=== PATIENT | male | born 1950 | race Caucasian/White ===

== ENCOUNTER 2022-02-02 11:21 | Inpatient (IN) ==
[2022-02-02] MEDS ORDERED: SODIUM CHLORIDE 0.9% 1000ML 1,000 ML IV ONE (12:20)
--- NOTE | 2022-02-02 12:29 | Emergency Department Note ---
Impression & Plan Small bowel perforation, Abdominal pain, Leukopenia ED Provider Note NAME: KIKI HENAO AGE: 71 SEX: M : 1950 ARRIVES VIA: Walk-In INFORMANT: Patient ED PROVIDER(S): Angelo Khanna DO CHIEF COMPLAINT: abdominal pain HPI: Patient is a 71-year-old male who presents to the ER for abdominal pain. Symptoms have been going on for the past 4 days. He describes the pain as 6-7 out of 10. Admits to nausea but no vomiting. He has been having profuse di arrhea for the past 4 days. Denies any dysuria, urgency, or frequency. No other exacerbating or remitting factors. He notes that his abdomen does feel slightly distended. He does drink alcohol fairly regularly but has not drank in the past 5 days. ROS: See above HPI for pertinent positives & negatives. A total of 10 systems reviewed and were otherwise negative. PAST MEDICAL HISTORY:See Below PAST SURGICAL HISTORY:See Below FAMILY HISTORY:See Below SOCIAL HISTORY:See Below HOME MEDICATIONS:See Below ALLERGIES:See Below VITALS:See Below PHYSICAL EXAMINATION: GENERAL: Sitting up in bed, alert, well appearing, well nourished, no distress, non-toxic EYE EXAM: normal conjunctiva. OROPHARYNX: no exudate, no erythema, lips, buccal mucosa, and tongue normal and mucous membranes are moist NECK: supple, no nuchal rigidity, no adenopathy, non-tender LUNGS: Clear to auscultation. Normal chest wall mechanics HEART: no murmurs, S1 normal and S2 normal ABDOMEN: abdomen soft, tender periumbilically, normo-active bowel sounds, no masses, no rebound or guarding. UPPER EXTREMITIES: upper extremities are grossly normal. LOWER EXTREMITIES: No pitting edema. NEURO EXAM: Normal sensorium, cranial nerves II-XII grossly intact, normal speech, no gross weakness of arms, no gross weakness of legs. MEDICAL DECISION MAKING: Patient is a 71-year-old male who presents ER for abdominal pain. IV was established blood work was obtained. Labs show leukopenia at 3.8. No significant anemia. Platelets were slightly low at 126. INR 3.2. BMP along with LFTs bilirubin was unremarkable. UA was contaminated. CT abdomen pelvis shows small bowel perforation. He was given IV Zosyn. He was given morphine and Zofran. Discussed with general surgery karson Rowell and patient was admitted to their service for further work-up. Triage Nursing notes reviewed. Limited review of prior medical records performed Vital Signs: reviewed and remarkable for no significant abnormalities Differential diagnosis: Differential diagnoses includes but is not limited to gastritis, peptic ulcer disease, GERD, gallbladder disease, pancreatitis, small bowel obstruction, acute coronary syndrome, pericarditis, ischemic bowel, irritable bowel disease, irritable bowel syndrome, appendicitis, diverticulitis, malignancy, hernia, urinary tract infection, torsion, perforation, trauma, infectious. ER treatment provided: See below Diagnostics interpreted by me: ECG: none Cardiac Monitoring: An order was placed for continuous cardiac monitoring. The monitor shows a rate of 70 with sinus rhythm. Laboratory studies: As stated above and show below. Imaging studies: CT abdomen pelvis as described above Consultation(s): Discussed with general surgery as described above Procedures: none Critical Care: None Past Med/Surg History Social History Smoking Status: Never smoker Feels Safe at Home: Yes Allergies Allergies Allergy/AdvReac Type Severity Reaction Status Date / Time No Known Allergies Verified 08/25/09 19:41 Home Meds Home Medications Medication Instructions Recorded Confirmed omega 0-til-knv-fish oil 1,200 mg 1 cap PO DAILY 02/02/22 02/02/22 (144 mg-216 mg) capsule (Fish Oil) vitamin E 268 mg (400 unit) capsule 268 mg PO DAILY 02/02/22 02/02/22 warfarin 10 mg tablet 5 - 10 mg PO DAILY 02/02/22 02/02/22 Results & Data (ED) Vital Signs Vital Signs - 24 hr 02/02/22 11:47 02/02/22 13:30 02/02/22 15:00 Temperature 36.5 C 37 C Temperature Source Temporal Artery Scan Oral Pulse Rate 79 Pulse Rate [Left Finger] 72 72 Pulse Rhythm Regular Pulse Rhythm [Left Finger] Regular Pulse Strength [Left Finger] Normal Respiratory Rate 20 16 16 Respiratory Effort / Characteristics Non-Labored Spontaneous Non-Labored Spontaneous Respiratory Depth Normal Normal Respiratory Pattern Regular Regular Blood Pressure 106/63 Blood Pressure [Left Arm] 124/62 139/69 Blood Pressure Mean 77 Blood Pressure Mean [Left Arm] 82 92 Blood Pressure Position Sitting Blood Pressure Position [Left Arm] Sitting Pulse Oximetry 99 98 99 Oxygen Delivery Method Room Air Room Air Room Air Sepsis Recent Fever Within 48 Hours No Sepsis New/Unexplained Change in Mental Status N/A Sepsis Action Taken by Nursing No Action Required Laboratory Data Result diagrams: 02/02/22 12:41 02/02/22 12:41 Lab Results 02/02/22 02/02/22 02/02/22 Range/Units 12:30 12:30 12:41 WBC 3.89 L (4.8-10.8) K/ul RBC 4.65 (4.63-6.08) M/uL Hgb 14.0 (14.0-18.0) g/dl Hct 40.7 (40.1-51.0) % MCV 87.5 (80.0-100.0) fL MCH 30.1 (25.0-34.0) pg MCHC 34.4 (32.0-36.0) g/dL RDW Std Deviation 46.2 (36.4-46.3) fL RDW Coeff of Cesilia 14.3 (11.5-14.5) % Plt Count 126 L (130-400) K/uL MPV 11.8 (9.4-12.4) fL Immature Gran % (Auto) 0.5 % Neut % (Auto) 57.1 % Lymph % (Auto) 14.7 % Baker % (Auto) 25.4 % Eos % (Auto) 1.5 % Baso % (Auto) 0.8 % Neut # (Auto) 2.22 (1.4-6.5) K/uL Lymph # (Auto) 0.57 L (1.2-3.4) K/uL Baker # (Auto) 0.99 H (0.24-0.82) K/uL Eos # (Auto) 0.06 (0-0.50) K/uL Baso # (Auto) 0.03 (0-0.2) K/uL Immature Gran # (Auto) 0.02 (0.00-0.02) K/uL PT (9.0-12.0) Seconds INR (0.9-1.1) Sodium (136-145) mmol/L Potassium (3.5-5.1) mmol/L Chloride (98-107) mmol/L Carbon Dioxide (21-32) mmol/L Anion Gap (3-11) BUN (6-23) mg/dl Creatinine (0.6-1.4) mg/dl Est Cr Clr Drug Dosing ml/min Est GFR ( Amer) ml/min Est GFR (Non-Af Amer) ml/min BUN/Creatinine Ratio (10-20) Glucose (70-99(Fasting)) mg/dl Calcium (8.5-10.1) mg/dl Total Bilirubin (0.2-1.0) mg/dl AST (13-39) U/L ALT (7-52) U/L Alkaline Phosphatase (34-104) U/L Total Protein (6.0-8.3) gm/dl Albumin (3.4-5.0) gm/dl Globulin (2.5-4.0) gm/dl Albumin/Globulin Ratio (0.9-2) Lipase (11-82) U/L Urine Color Dark Yellow Urine Appearance Clear (Clear) Urine pH 6.0 (4.5-7.5) Ur Specific [place] 1.029 (1.000-1.030) Urine Protein 2+ H (Negative) Urine Glucose (UA) Negative (Negative) Urine Ketones Trace H (Negative) Urine Blood Negative (Negative) Urine Nitrite Negative (Negative) Urine Bilirubin Negative (Negative) Urine Urobilinogen Negative (Negative) Ur Leukocyte Esterase Negative (Negative) Urine WBC (Auto) 1-5 (0-5) /hpf Urine RBC (Auto) 0-4 (0-4) /hpf U Hyaline Cast (Auto) 5-10 H (0-5) /lpf U Epithel Cells (Auto) >30 H (0-5) /lpf Urine Bacteria (Auto) Negative (Negative) Ur Renal Epithelial Cell Not Reportable Urine Mucus Present A (None Prsent) Stl C. cayetanensis PCR Not Detected (NotDetected) Stool Rotavirus A PCR Not Detected (NotDetected) Stl Adenov F 40/41 PCR Not Detected (NotDetected) Stool Astrovirus (PCR) Not Detected (NotDetected) Stool Campylobacter PCR Not Detected (NotDetected) Stl C. diff Tox A/B PCR Not Detected (NotDetected) Stool Cryptosporidium PCR Not Detected (NotDetected) Stl E.coli Shiga Tox PCR Not Detected (NotDetected) Stl Enterotoxigenic E PCR Not Detected (NotDetected) Stool EPEC (PCR) Not Detected (NotDetected) Stool EAEC (PCR) Not Detected (NotDetected) Stl E. histolytica PCR Not Detected (NotDetected) Stool Giardia Lamblia PCR Not Detected (NotDetected) Stool Salmonella PCR Not Detected (NotDetected) Stool Sapovirus (PCR) Not Detected (NotDetected) Stl P. shigelloides PCR Not Detected (NotDetected) Stl Shigella/EIEC PCR Not Detected (NotDetected) St Y.enterocolitica PCR Not Detected (NotDetected) Stool Vibrio (PCR) Not Detected (NotDetected) Stl Vibrio cholerae PCR Not Detected (NotDetected) Stl Norovirus GI/GII PCR Not Detected (NotDetected) SARS-CoV-2, RNA, NAAT (NEGATIVE) 02/02/22 02/02/22 02/02/22 Range/Units 12:41 12:41 14:53 WBC (4.8-10.8) K/ul RBC (4.63-6.08) M/uL Hgb (14.0-18.0) g/dl Hct (40.1-51.0) % MCV (80.0-100.0) fL MCH (25.0-34.0) pg MCHC (32.0-36.0) g/dL RDW Std Deviation (36.4-46.3) fL RDW Coeff of Cesilia (11.5-14.5) % Plt Count (130-400) K/uL MPV (9.4-12.4) fL Immature Gran % (Auto) % Neut % (Auto) % Lymph % (Auto) % Baker % (Auto) % Eos % (Auto) % Baso % (Auto) % Neut # (Auto) (1.4-6.5) K/uL Lymph # (Auto) (1.2-3.4) K/uL Baker # (Auto) (0.24-0.82) K/uL Eos # (Auto) (0-0.50) K/uL Baso # (Auto) (0-0.2) K/uL Immature Gran # (Auto) (0.00-0.02) K/uL PT 32.1 H (9.0-12.0) Seconds INR 3.2 H (0.9-1.1) Sodium 134 L (136-145) mmol/L Potassium 3.9 (3.5-5.1) mmol/L Chloride 99 (98-107) mmol/L Carbon Dioxide 27 (21-32) mmol/L Anion Gap 8 (3-11) BUN 17 (6-23) mg/dl Creatinine 1.00 (0.6-1.4) mg/dl Est Cr Clr Drug Dosing 84.4 ml/min Est GFR ( Amer) 88.6 ml/min Est GFR (Non-Af Amer) 76.5 ml/min BUN/Creatinine Ratio 17.0 (10-20) Glucose 105 H (70-99(Fasting)) mg/dl Calcium 8.7 (8.5-10.1) mg/dl Total Bilirubin 0.9 (0.2-1.0) mg/dl AST 14 (13-39) U/L ALT 12 (7-52) U/L Alkaline Phosphatase 48 (34-104) U/L Total Protein 7.4 (6.0-8.3) gm/dl Albumin 3.7 (3.4-5.0) gm/dl Globulin 3.7 (2.5-4.0) gm/dl Albumin/Globulin Ratio 1.0 (0.9-2) Lipase 6 L (11-82) U/L Urine Color Urine Appearance (Clear) Urine pH (4.5-7.5) Ur Specific [place] (1.000-1.030) Urine Protein (Negative) Urine Glucose (UA) (Negative) Urine Ketones (Negative) Urine Blood (Negative) Urine Nitrite (Negative) Urine Bilirubin (Negative) Urine Urobilinogen (Negative) Ur Leukocyte Esterase (Negative) Urine WBC (Auto) (0-5) /hpf Urine RBC (Auto) (0-4) /hpf U Hyaline Cast (Auto) (0-5) /lpf U Epithel Cells (Auto) (0-5) /lpf Urine Bacteria (Auto) (Negative) Ur Renal Epithelial Cell Urine Mucus (None Prsent) Stl C. cayetanensis PCR (NotDetected) Stool Rotavirus A PCR (NotDetected) Stl Adenov F 40/41 PCR (NotDetected) Stool Astrovirus (PCR) (NotDetected) Stool Campylobacter PCR (NotDetected) Stl C. diff Tox A/B PCR (NotDetected) Stool Cryptosporidium PCR (NotDetected) Stl E.coli Shiga Tox PCR (NotDetected) Stl Enterotoxigenic E PCR (NotDetected) Stool EPEC (PCR) (NotDetected) Stool EAEC (PCR) (NotDetected) Stl E. histolytica PCR (NotDetected) Stool Giardia Lamblia PCR (NotDetected) Stool Salmonella PCR (NotDetected) Stool Sapovirus (PCR) (NotDetected) Stl P. shigelloides PCR (NotDetected) Stl Shigella/EIEC PCR (NotDetected) St Y.enterocolitica PCR (NotDetected) Stool Vibrio (PCR) (NotDetected) Stl Vibrio cholerae PCR (NotDetected) Stl Norovirus GI/GII PCR (NotDetected) SARS-CoV-2, RNA, NAAT NEGATIVE (NEGATIVE) Administered Medications Discontinued Medications Sodium Chloride (Nss 1000ml) 1,000 mls @ 999 mls/hr IV .Q1H1M ONE Stop: 02/02/22 13:20 Last Infusion: 02/02/22 13:50 Dose: 0 mls/hr Documented By: Admin: 02/02/22 12:50 Dose: 999 mls/hr Documented By: NISH Piperacillin Sod/Tazobactam Sod (Zosyn) 4.5 gm in 120 mls @ 240 mls/hr IV NOW ONE Stop: 02/02/22 15:15 Last Infusion: 02/02/22 16:59 Dose: 0 mls/hr Documented By: Admin: 02/02/22 15:55 Dose: 240 mls/hr Documented By: LUIS Phytonadione 5 mg/ Dextrose 50.5 mls @ 101 mls/hr IV ONE ONE Stop: 02/02/22 16:14 Last Admin: 02/02/22 17:05 Dose: 101 mls/hr Documented By: LUIS Ioversol (Optiray 300 100ml) 94 ml IV ONCE ONE Stop: 02/02/22 13:54 Last Admin: 02/02/22 13:53 Dose: 94 ml Documented By: SHARRI Morphine Sulfate (Morphine Sulfate 10 Mg/Ml Carp/Vial) 6 mg IV NOW STA Stop: 02/02/22 15:45 Last Admin: 02/02/22 15:55 Dose: 6 mg Documented By: LUIS Ondansetron HCl (Ondansetron Inj 2 Mg/Ml 2 Ml Vial) 4 mg IV NOW STA Stop: 02/02/22 15:45 Last Admin: 02/02/22 15:55 Dose: 4 mg Documented By: LUIS Imaging Data Radiologist's Impression: Abdomen/Pelvis CT 02/02/22 12:19 CT SCAN OF THE ABDOMEN AND PELVIS WITH IV CONTRAST CLINICAL HISTORY: Generalized abdominal pain. Diarrhea. COMPARISON STUDY: No priors. TECHNIQUE: Following the IV administration of 94 cc of Optiray 300, CT scan of the abdomen and pelvis is performed from the lung bases to the proximal femora. Images are reviewed in the axial, sagittal, and coronal planes. IV contrast was administered without complication. A dose lowering technique was utilized adhering to the principles of ALARA. CT DOSE: 367.83 mGy.cm FINDINGS: Lung bases: The heart is normal in size and without pericardial effusion. There are coronary artery calcifications. The lung bases are clear noting dependent atelectasis. A tiny hiatal hernia is noted. Liver: The contrast-enhanced liver is normal in size, contour, and attenuation. There is no intrahepatic biliary ductal dilatation. The hepatic veins and portal veins are patent. Gallbladder: Unremarkable. Spleen: Normal in size and attenuation. Pancreas: Unremarkable. Adrenal glands: Unremarkable. Kidneys: The contrast enhanced kidneys are normal in size and without hydronephrosis. The kidneys enhance symmetrically. Abdominal vasculature: There is moderate to advanced atherosclerotic calcification and mild ectasia of the abdominal aorta. Bowel: There are markedly thick-walled loops of small bowel in the left lower quadrant seen on axial image #349. Interloop fluid is noted and there is surrounding mesenteric edema. There is phlegmonous change adjacent to these bowel loops on image #333 containing gas and fluid indicating contained perforation. No organized/drainable fluid collection is identified at this time. The small bowel loops are distended, fluid-filled, and fecalized measuring up to 4.7 cm in diameter. There is also fluid and stool in the right colon. No transition point is identified throughout the small bowel. There is no pneumatosis intestinalis or portal venous gas. The appendix is distended and fluid-filled measuring up to 10 mm in diameter. There is no wall thickening or surrounding inflammation and appendicitis is considered unlikely. This is likely related to the concurrent bowel process. Peritoneum: No acute peritoneal free air is seen below the diaphragm. There is interloop fluid involving small bowel loops in the pelvis, as well as a small volume of pelvic ascites. Lymphadenopathy: Numerous prominent mesenteric lymph nodes are likely reactive. Pelvic viscera: The prostate gland is enlarged and heterogeneous noting median lobe hypertrophy. The bladder is mildly distended. The wall is thickened/trabeculated indicating chronic outlet obstruction. Skeletal structures: There is mild lumbosacral spondylosis. No lytic or blastic lesions are seen. IMPRESSION: 1. There are markedly thick-walled and inflamed loops of small bowel in the left lower quadrant with evidence of contained perforation. Surgical assessment is advised. 2. The remaining small bowel loops are significantly distended and fluid-filled, with no transition point identified. The appearance strongly favors ileus over obstruction. 3. There is phlegmonous change adjacent to the inflamed small bowel loops, with no organized/drainable fluid collection is seen at this time. 4. There is no free air below the diaphragm. No pneumatosis intestinalis or portal venous gas is seen. 5. There is interloop fluid seen involving the loops of small bowel in the pelvis as well as a small volume of pelvic ascites. 6. The appendix is distended and fluid-filled without surrounding inflammation. Appendicitis is considered unlikely and this is likely related to the concurrent bowel process. 7. Additional findings as above. ACT 112: Negative or not required by law. Electronically signed by: Max Baca M.D. 02/02/2022 2:43 PM Discharge Plan Visit Data Chief Complaint: Abdominal Pain Stated Complaint: STOMACH PAIN, LIGHT HEADED, CAN'T EAT ED Provider: Angelo Khanna Discharge Problem: Small bowel perforation, Abdominal pain, Leukopenia Patient Disposition: Admitted As Inpatient Discharge Instructions Interventions: ED Discharge Assessment Last Done: 02/02/22 17:31
[2022-02-02 12:57] LABS: Appearance Urine Clear (Clear); Bacteria Urine Automated Negative (Negative); Bilirubin Urine Negative (Negative); Blood Urine Negative (Negative); Color Urine Dark Yellow; Epithelial Cell Urine Auto >30 /lpf (0-5); Glucose Urine UA Negative (Negative); Ketones Urine Trace (Negative); Leukocyte Esterase Urine Negative (Negative); Nitrite Urine Negative (Negative); Protein Urine 2+ (Negative); RBC Urine Automated 0-4 /hpf (0-4); Specific Gravity Urine 1.029 (1.000-1.030); Urobilinogen Urine Negative (Negative)
[2022-02-02 12:59] LABS: Hematocrit (blood only) 40.7 % (40.1-51.0); Mean Corpuscular Hemoglobin 30.1 pg (25.0-34.0); Mean Corpuscular Hgb Conc 34.4 g/dL (32.0-36.0); Mean Corpuscular Volume 87.5 fL (80.0-100.0); Mean Platelet Volume 11.8 fL (9.4-12.4); Platelet Count 126 K/uL (130-400); RDW Coefficient of Variation 14.3 % (11.5-14.5); RDW Standard Deviation 46.2 fL (36.4-46.3); Red Blood Count 4.65 M/uL (4.63-6.08); White Blood Count 3.89 K/ul (4.8-10.8)
[2022-02-02 13:13] LABS: Mucus Urine Present (None Prsent)
[2022-02-02 13:20] LABS: Albumin Level 3.7 gm/dl (3.4-5.0); Bilirubin,Total 0.9 mg/dl (0.2-1.0); Calcium 8.7 mg/dl (8.5-10.1); Creatinine Clr Calc Pharmacy 84.4 ml/min; Est GFR (African American) 88.6 ml/min; Est GFR (Non-African American) 76.5 ml/min; Globulin 3.7 gm/dl (2.5-4.0); Potassium 3.9 mmol/L (3.5-5.1); Total Protein 7.4 gm/dl (6.0-8.3)
[2022-02-02 13:33] LABS: Basophils # (auto) 0.03 K/uL (0-0.2); Basophils % (auto) 0.8 %; Eosinophils # (auto) 0.06 K/uL (0-0.50); Eosinophils % (auto) 1.5 %; Immature Granulocytes # (auto) 0.02 K/uL (0.00-0.02); Immature Granulocytes % (auto) 0.5 %; Lymphocytes # (auto) 0.57 K/uL (1.2-3.4); Lymphocytes % (auto) 14.7 %; Monocytes # (auto) 0.99 K/uL (0.24-0.82); Monocytes % (auto) 25.4 %; Neutrophils # (auto) 2.22 K/uL (1.4-6.5); Neutrophils % (auto) 57.1 %
[2022-02-02] MEDS ORDERED: OPTIRAY 300 100mL IV ONE (13:53)
[2022-02-02 14:31] LABS: Adenovirus F 40/41 PCR Not Detected (NotDetected); Astrovirus PCR Not Detected (NotDetected); Campylobacter PCR Not Detected (NotDetected); Clostridium diff Toxin A/B PCR Not Detected (NotDetected); Cryptosporidium PCR Not Detected (NotDetected); Cyclospora cayetanensis PCR Not Detected (NotDetected); Entamoeba histolytica PCR Not Detected (NotDetected); Enteroaggregative E.coli(EAEC) Not Detected (NotDetected); Enteropathogenic E.coli (EPEC) Not Detected (NotDetected); Enterotoxigenic E.coli (ETEC) Not Detected (NotDetected); Giardia lamblia PCR Not Detected (NotDetected); Norovirus GI/GII PCR Not Detected (NotDetected); Plesiomonas shigelloides PCR Not Detected (NotDetected); Rotavirus A PCR Not Detected (NotDetected); Salmonella PCR Not Detected (NotDetected); Sapovirus PCR Not Detected (NotDetected); Shiga-like Toxin E.coli (STEC) Not Detected (NotDetected); Shigella/Enteroinvasive E.coli Not Detected (NotDetected); Vibrio cholerae PCR Not Detected (NotDetected); Vibrio species PCR Not Detected (NotDetected); Yersinia enterocolitica PCR Not Detected (NotDetected)
--- NOTE | 2022-02-02 14:45 | CT Scan Report ---
CT SCAN OF THE ABDOMEN AND PELVIS WITH IV CONTRAST CLINICAL HISTORY: Generalized abdominal pain. Diarrhea. COMPARISON STUDY: No priors. TECHNIQUE: Following the IV administration of 94 cc of Optiray 300, CT scan of the abdomen and pelvi s is performed from the lung bases to the proximal femora. Images are reviewed in the axial, sagittal , and coronal planes. IV contrast was administered without complication. A dose lowering technique wa s utilized adhering to the principles of ALARA. CT DOSE: 367.83 mGy.cm FINDINGS: Lung bases: The heart is normal in size and without pericardial effusion. There are coronary artery c alcifications. The lung bases are clear noting dependent atelectasis. A tiny hiatal hernia is noted. Liver: The contrast-enhanced liver is normal in size, contour, and attenuation. There is no intrahepa tic biliary ductal dilatation. The hepatic veins and portal veins are patent. Gallbladder: Unremarkable. Spleen: Normal in size and attenuation. Pancreas: Unremarkable. Adrenal glands: Unremarkable. Kidneys: The contrast enhanced kidneys are normal in size and without hydronephrosis. The kidneys enh ance symmetrically. Abdominal vasculature: There is moderate to advanced atherosclerotic calcification and mild ectasia o f the abdominal aorta. Bowel: There are markedly thick-walled loops of small bowel in the left lower quadrant seen on axial image #349. Interloop fluid is noted and there is surrounding mesenteric edema. There is phlegmonous change adjacent to these bowel loops on image #333 containing gas and fluid indicating contained perf oration. No organized/drainable fluid collection is identified at this time. The small bowel loops ar e distended, fluid-filled, and fecalized measuring up to 4.7 cm in diameter. There is also fluid and stool in the right colon. No transition point is identified throughout the small bowel. There is no p neumatosis intestinalis or portal venous gas. The appendix is distended and fluid-filled measuring up to 10 mm in diameter. There is no wall thickening or surrounding inflammation and appendicitis is co nsidered unlikely. This is likely related to the concurrent bowel process. Peritoneum: No acute peritoneal free air is seen below the diaphragm. There is interloop fluid involv ing small bowel loops in the pelvis, as well as a small volume of pelvic ascites. Lymphadenopathy: Numerous prominent mesenteric lymph nodes are likely reactive. Pelvic viscera: The prostate gland is enlarged and heterogeneous noting median lobe hypertrophy. The bladder is mildly distended. The wall is thickened/trabeculated indicating chronic outlet obstruction . Skeletal structures: There is mild lumbosacral spondylosis. No lytic or blastic lesions are seen. IMPRESSION: 1. There are markedly thick-walled and inflamed loops of small bowel in the left lower quadrant with evidence of contained perforation. Surgical assessment is advised. 2. The remaining small bowel loops are significantly distended and fluid-filled, with no transition p oint identified. The appearance strongly favors ileus over obstruction. 3. There is phlegmonous change adjacent to the inflamed small bowel loops, with no organized/drainabl e fluid collection is seen at this time. 4. There is no free air below the diaphragm. No pneumatosis intestinalis or portal venous gas is seen . 5. There is interloop fluid seen involving the loops of small bowel in the pelvis as well as a small volume of pelvic ascites. 6. The appendix is distended and fluid-filled without surrounding inflammation. Appendicitis is consi dered unlikely and this is likely related to the concurrent bowel process. 7. Additional findings as above. ACT 112: Negative or not required by law. Electronically signed by: Max Baca M.D. 02/02/2022 2:43 PM
[2022-02-02] MEDS ORDERED: PIPERACILLIN/TAZOBACTAM 4.5 GM/120 ML BAG IV ONE (14:46)
[2022-02-02 15:23] LABS: INR 3.2 (0.9-1.1); Prothrombin Time 32.1 Seconds (9.0-12.0)
--- NOTE | 2022-02-02 15:24 | History & Physical Report ---
Date of Service February 02, 2022 Assessment & Plan (1) Small bowel perforation: Plan: Small bowel perforation, appears contained. Does not peritoneal findings. HR and temp are normal. WBC 4 without left shift. Will keep NPO, start on Zosyn and watch closely for the next 24-48 hours. History of Present Illness Primary Care Provider: Vaibhav Greenfield MD 71 y/o male with abdominal pain that began four days ago. He seemed to first notice this on Tuesday after a work out. Over the weekend he had slowly increasing pain, nausea, some chills and bloating. Has been having loose BMs for the past few days. Has been eating small amounts such as an egg this morning. No history of pain, IBD or surgery. On coumadin for h/o DVT and has been taking this daily. Allergies Allergy/AdvReac Type Severity Reaction Status Date / Time No Known Allergies Verified 08/25/09 19:41 Home Medications Medication Instructions Recorded Confirmed Type omega 9-duy-slo-fish oil 1,200 mg 1 cap PO DAILY 02/02/22 02/02/22 History (144 mg-216 mg) capsule (Fish Oil) vitamin E 268 mg (400 unit) capsule 268 mg PO DAILY 02/02/22 02/02/22 History warfarin 10 mg tablet 5 - 10 mg PO DAILY 02/02/22 02/02/22 History Past Med/Surg History Social History Smoking Status: Never smoker Hx Alcohol Use: Yes Alcohol type: beer Hx Substance Use: No Preferred Language: Yi Communication Ability: Effective Collection Supervisor Required: No Beliefs That Will Affect Care: None Feels Safe at Home: Yes Review of Systems Constitutional: + chills, + malaise and + anorexia; no fever Respiratory: no cough and no dyspnea Cardiovascular: no chest pain and no chest pain with activity Gastrointestinal: + abdominal pain, + bloating, + nausea and + diarrhea/loose stools (past 4 days); no vomiting Physical Exam Constitutional: WD/WN, vitals as above Respiratory: normal respiratory effort, lungs clear to auscultation Cardiovascular: RRR, no murmur, no edema Gastrointestinal (Abdomen): Inspection/Auscultation: + abdomen distended (slight) Percussion/Palpation: + abdomen tender (mild lower) and abdomen soft; no guarding Results & Data Results & Data ([facility]) Vital Signs (Past 12 Hours) Vital Signs Temp Pulse Pulse Resp BP BP Pulse Ox 02/02/22 13:30 72 16 124/62 98 02/02/22 11:47 36.5 C 79 20 106/63 99 O2 Del Method 02/02/22 13:30 Room Air 02/02/22 11:47 Room Air Supervising Physician Co-Signing Physician Notes I personally saw and evaluated the patient with Fausto Yi PA-C and agree with the assessment and plan. 71-year-old male with contained small bowel perforation of unknown etiology CT images and results personally viewed by me, he has moderate inflammation with phlegmon associated with some left lower quadrant small bowel on CT imaging without any drainable abscess Admit to the surgery team, keep n.p.o., start Zosyn IV We will monitor his vitals and abdominal exam for any worsening He may require exploration over the next 24 to 48 hours if his clinical exam worsens PG Care Time/CCT Total # of Minutes Spent Total Time Spent with Patient: Total time spent is greater than 50% in coordination of care (as documented) at patient's floor/unit and/or counseling patient: Coding Level of Care Code 47898 Initial Inpt Care Lvl 3 Diagnoses Small bowel perforation K63.1
[2022-02-02] MEDS ORDERED: MoRPHine SULFATE 10 MG/ML CARP/VIAL IV STA (15:44)
[2022-02-02] MEDS ORDERED: ONDANSETRON INJ 2 MG/ML 2 ML VIAL IV STA (15:44)
[2022-02-02] MEDS ORDERED: PHYTONADIONE 5 MG in DEXTROSE 5% 50 ML IV ONE (15:45)
[2022-02-02] MEDS ORDERED: MoRPHine SULFATE 2 MG/ML CARP IV PRN (17:39)
[2022-02-02] MEDS ORDERED: ACETAMINOPHEN 1000 MG/100 ML IV IV PRN (17:39)
[2022-02-02] MEDS: SODIUM CHLORIDE 0.9% 1000ML 1,000 ML IV SCH (19:04)
[2022-02-02] MEDS: PIPERACILLIN/TAZOBACTAM 3.375 GM in DEXTROSE 5% 100 ML IV SCH (20:34)
--- NOTE | 2022-02-02 20:41 | Communication Note ---
Date of Service: February 02, 2022 This is a 71-year-old male who was admitted to [facility] on the surgical service earlier today secondary to a small bowel perforation. CT scan of the abdomen showed the patient had some markedly thick-walled and inflamed loops of small bowel in the left lower quadrant with evidence of a contained perforation. Labs showed a white blood cell count of 3.8. Hemoglobin, hematocrit, were noted to be normal. Platelet count was 1 or 26,000. INR was noted to be 3.2. Chemistry profile showed sodium was 134. Potassium, BUN, and creatinine were noted to be normal. Due to the nature of patient's admitting problem I reevaluated the patient to ensure he continued to remain clinically stable. I visited with the patient at the bedside at the present time he will notes only minor abdominal pain that he rates approximately 3 out of 10 on the pain scale. He notes the pain does not radiate and is somewhat worse with movement. He denies any nausea or vomiting. I discussed with the nurse who is attending to the patient. She notes that since she has been monitoring this patient he is remained hemodynamically stable with a normal blood pressure. He has not been noted to be tachycardic. He has been afebrile. Patient has had antibiotics initiated in the form of Zosyn and these have been administered. Patient also has intravenous fluids running in the form of normal saline at 130 cc/h. The RN notes the patient has not required pain medicine since approximately 4:00 PM at which time he received 6 mg of morphine. The patient has also received 5 mg of intravenous vitamin K in efforts to reverse his INR. We will continue to clinically monitor the patient. We will continue n.p.o. status as well as antibiotics and intravenous fluids. Additional recommendations be forthcoming based on his clinical course as it unfolds as well as recommendations from attending surgeon tomorrow.
[2022-02-03] MEDS: SODIUM CHLORIDE 0.9% 1000ML 1,000 ML IV SCH (01:33)
[2022-02-03] MEDS: MoRPHine SULFATE 4 MG/ML 1 ML CARP\\VIAL IV PRN ×2 (03:09→07:17)
[2022-02-03] MEDS: PIPERACILLIN/TAZOBACTAM 3.375 GM in DEXTROSE 5% 100 ML IV SCH ×3 (03:09→19:42)
[2022-02-03] MEDS: ONDANSETRON INJ 2 MG/ML 2 ML VIAL IV PRN (03:23)
[2022-02-03 05:45] LABS: Hematocrit (blood only) 35.5 % (40.1-51.0); Hemoglobin 12.2 g/dl (14.0-18.0); Mean Corpuscular Hemoglobin 30.1 pg (25.0-34.0); Mean Corpuscular Hgb Conc 34.4 g/dL (32.0-36.0); Mean Corpuscular Volume 87.7 fL (80.0-100.0); Mean Platelet Volume 11.1 fL (9.4-12.4); Platelet Count 128 K/uL (130-400); RDW Coefficient of Variation 14.2 % (11.5-14.5); RDW Standard Deviation 45.6 fL (36.4-46.3); Red Blood Count 4.05 M/uL (4.63-6.08); White Blood Count 3.65 K/ul (4.8-10.8)
[2022-02-03 05:50] LABS: INR 1.3 (0.9-1.1); Prothrombin Time 13.7 Seconds (9.0-12.0)
[2022-02-03 06:02] LABS: Calcium 7.7 mg/dl (8.5-10.1); Creatinine Clr Calc Pharmacy 96.3 ml/min; Est GFR (African American) 102.5 ml/min; Est GFR (Non-African American) 88.5 ml/min; Potassium 3.7 mmol/L (3.5-5.1)
[2022-02-03 06:03] LABS: Basophils # (auto) 0.02 K/uL (0-0.2); Basophils % (auto) 0.5 %; Eosinophils # (auto) 0.09 K/uL (0-0.50); Eosinophils % (auto) 2.5 %; Immature Granulocytes # (auto) 0.02 K/uL (0.00-0.02); Immature Granulocytes % (auto) 0.5 %; Lymphocytes # (auto) 0.52 K/uL (1.2-3.4); Lymphocytes % (auto) 14.2 %; Monocytes # (auto) 1.19 K/uL (0.24-0.82); Monocytes % (auto) 32.6 %; Neutrophils # (auto) 1.81 K/uL (1.4-6.5); Neutrophils % (auto) 49.7 %
--- NOTE | 2022-02-03 06:27 | Communication Note ---
Date of Service: February 03, 2022 Patient was revisited at bedside at approximately 4:00 AM. At that time patient noted that his abdominal pain was worse than what he was experiencing during my initial visit in the emergency department. He denies any nausea or vomiting. He notes that the abdominal pain is worse with movement. Patient's vital signs were reviewed and he is remained normotensive without tachycardia or fever since admission. On exam the patient's abdomen has more tenderness noted with palpation which appears to be greatest on the left side of his abdomen. His abdomen is nonrigid. I did discuss with his nurse and notes that since admission the patient has only received 1 dose of morphine at approximately 3:00 AM (4 mg) he has also received Zofran. The patient continues to receive intravenous Zosyn as well as intravenous fluids. Due to the patient's worsening abdominal pain I did asked the lab to draw his a.m. labs early. These have been resulted in his white blood cell count is not elevated at 3.65. Hemoglobin and hematocrit are 12.2 and 35.5. Platelet count is 120,000. [place] profile shows sodium, potassium, BUN, and creatinine are all normal. The patient's INR is now 1.3 (he did receive vitamin K in the emergency department to reverse Coumadin that he was taking) Dr. Shah has been updated on the patient's condition and notes that we will continue to treat him nonoperatively for the present time. He will make further decisions upon his evaluation of the patient this morning.
--- NOTE | 2022-02-03 07:22 | Communication Note ---
Date of Service: February 03, 2022 I was called by nurse that pt. was experiencing worsening abdominal pain. I re- visited the pt. as bedside. He notes worsening pain in the LLQ--worse with movement and palpation. No N/V. Vitals reveiewed and pt. normotensive, not tachycardic, and afebrile. Abdomen is non-rigid but TTP greatest in LLQ. Pt. remains NPO and is receiving IVF and IV zosyn. Dr. Shah notified and he will evaluate pt. this am and determine if we will continue conservative treatment o proceed with OR. RN asked to administer analgesics.
[2022-02-03] MEDS: PROMETHAZINE HCL 12.5 MG in SODIUM CHLORIDE 0.9% 50 ML IV PRN (07:53)
--- NOTE | 2022-02-03 08:19 | Surgery Progress Note ---
Date of Service February 03, 2022 Assessment & Plan (1) Small bowel perforation: Plan: Vitals remain stable, WBC unchanged. INR 1.3 continue IV Zosyn, if no further improvement by tomorrow will plan for exploration Admission and Anticipated Discharge Date Admission Date: February 02, 2022 Supervising Physician Co-Signing Physician Notes I personally saw and evaluated the patient with Fausto Yi PA-C and agree with the assessment and plan. 71-year-old male with contained small bowel perforation of unknown etiology He continues to have moderate abdominal pain that is controlled with morphine His vital signs and lab work are all stable, he is clinically mildly improved We will monitor his vitals and abdominal exam for any worsening If he does not show significant signs of clinical response to the IV antibiotics over the next 24 hours, I think exploration would be warranted at that time, we will tentatively plan to take him to the operating room tomorrow morning pending his clinical course Continue n.p.o. and IV antibiotics Subjective medicated for pain and nausea overnight but overall having a little less pain, some flatus, no further diarrhea, no fevers or chills, no nausea Physical Exam Constitutional: WD/WN, vitals as above Gastrointestinal (Abdomen): Inspection/Auscultation: + abdomen distended (min imal) Percussion/Palpation: + abdomen tender (LLQ) and abdomen soft Results & Data ([facility]) Vital Signs (Past 12 Hours) Vital Signs Temp Pulse Resp BP Pulse Ox O2 Del Method 02/03/22 07:08 36.7 C 77 18 113/57 L 95 Room Air 02/02/22 22:08 37.2 C 72 18 134/66 97 02/02/22 21:00 77 18 9 L PG Care Time/CCT Total # of Minutes Spent Total Time Spent with Patient: Total time spent is greater than 50% in coordination of care (as documented) at patient's floor/unit and/or counseling patient: Coding Level of Care Code 69146 Subseq Hosp Care Lvl 1 Diagnoses Small bowel perforation K63.1
[2022-02-03] MEDS: D5W AND 1/2NSS + 20MEQ KCL 20 MEQ/1,000 ML BAG IV SCH ×3 (08:53→23:38)
[2022-02-03] MEDS ORDERED: PANTOprazole 40 MG in SYRINGE 0 ML IV ONE (18:30)
[2022-02-04] MEDS: PIPERACILLIN/TAZOBACTAM 3.375 GM in DEXTROSE 5% 100 ML IV SCH ×3 (04:17→21:01)
[2022-02-04] MEDS: D5W AND 1/2NSS + 20MEQ KCL 20 MEQ/1,000 ML BAG IV SCH ×2 (07:24→20:05)
[2022-02-04 07:44] LABS: Basophils # (auto) 0.04 K/uL (0-0.2); Basophils % (auto) 0.7 %; Eosinophils % (auto) 1.7 %; Hematocrit (blood only) 36.1 % (40.1-51.0); Hemoglobin 12.3 g/dl (14.0-18.0); Immature Granulocytes # (auto) 0.04 K/uL (0.00-0.02); Immature Granulocytes % (auto) 0.7 %; Lymphocytes # (auto) 0.97 K/uL (1.2-3.4); Lymphocytes % (auto) 16.6 %; Mean Corpuscular Hgb Conc 34.1 g/dL (32.0-36.0); Mean Platelet Volume 11.1 fL (9.4-12.4); Monocytes # (auto) 1.24 K/uL (0.24-0.82); Monocytes % (auto) 21.2 %; Neutrophils # (auto) 3.47 K/uL (1.4-6.5); Neutrophils % (auto) 59.1 %; Platelet Count 168 K/uL (130-400); RDW Coefficient of Variation 14.3 % (11.5-14.5); RDW Standard Deviation 46.5 fL (36.4-46.3); White Blood Count 5.86 K/ul (4.8-10.8)
[2022-02-04] MEDS ORDERED: ROCURONIUM BROMIDE 10 MG/ML 5 ML VIAL IV ONE ×2 (07:50→11:59)
[2022-02-04] MEDS ORDERED: DEXAMETHASONE SOD INJ 4 MG/ML VIAL ONE (07:50)
[2022-02-04] MEDS ORDERED: LARYING-O-JET KIT (LTA) ONE (07:50)
[2022-02-04] MEDS ORDERED: LIDOCAINE 2% 20 MG/ML 5 ML SYR IV ONE (07:50)
[2022-02-04] MEDS ORDERED: ONDANSETRON INJ 2 MG/ML 2 ML VIAL ONE ×2 (07:50→12:01)
[2022-02-04] MEDS ORDERED: LIDOCAINE 2% 2 ML VIAL/AMP(20MG/ML) INFIL ONE ×3 (07:50→10:56)
[2022-02-04] MEDS ORDERED: PROPOFOL IV EMULSION 10 MG/ML 20 ML VIAL IV ONE (07:50)
[2022-02-04] MEDS ORDERED: MIDAZOLAM HCL 1 MG/ML 2ML VIAL ONE (07:51)
[2022-02-04] MEDS ORDERED: KETAMINE 50 MG/5 ML SYRINGE ONE (07:51)
[2022-02-04] MEDS ORDERED: fentaNYL citrate 100 MCG/2 ML VIAL ONE (07:51)
--- NOTE | 2022-02-04 07:59 | Surgery Progress Note ---
Date of Service February 04, 2022 Assessment & Plan (1) Small bowel perforation: Plan: He is slowly getting better, however I think due to the size of the phlegmon and location of the phlegmon percutaneous drainage would not be an option at any point We discussed that keeping him n.p.o. giving IV antibiotics may slowly treat the area but will likely prolong his hospital course I think the best option at this point would be to proceed with an exploratory laparotomy, possible bowel resection, possible ostomy The patient is in agreement with this and would like to proceed with surgery Consent was obtained, risk discussed including bleeding, infection, leak, injury to nearby structures, abscess (2) Abdominal pain: Admission and Anticipated Discharge Date Admission Date: February 02, 2022 Subjective Patient seen and examined. He feels slightly better and has been able to walk around, but still has left lower quadrant pain. Vital signs stable. Afebrile. He has little bit of nausea but no emesis. Review of Systems Constitutional: no fever and no chills Physical Exam Constitutional: WD/WN, vitals as above Gastrointestinal (Abdomen): Inspection/Auscultation: abdomen normal to inspection; abdomen not distended Percussion/Palpation: + abdomen tender (Left lower quadrant), + guarding (Left lower quadrant) and abdomen soft; abdomen not rigid and no hernia Results & Data ([facility]) Vital Signs (Past 12 Hours) Vital Signs Temp Pulse Resp BP BP Pulse Ox O2 Del Method 02/04/22 07:36 37.1 C 70 16 118/69 95 Room Air 02/03/22 21:25 37.1 C 67 16 106/58 L 97 PG Care Time/CCT Total # of Minutes Spent Total Time Spent with Patient: Total time spent is greater than 50% in coordination of care (as documented) at patient's floor/unit and/or counseling patient: Coding Level of Care Code 02361 Subseq Hosp Care Lvl 1 Diagnoses Small bowel perforation K63.1 Abdominal pain R10.9
[2022-02-04 08:01] LABS: INR 1.3 (0.9-1.1); Prothrombin Time 13.5 Seconds (9.0-12.0)
[2022-02-04 08:06] LABS: BUN Creatinine Ratio 7.6 (10-20); Calcium 8.3 mg/dl (8.5-10.1); Est GFR (Non-African American) 84.6 ml/min; Potassium 3.9 mmol/L (3.5-5.1)
--- NOTE | 2022-02-04 09:17 | Anesthesiology Consultation ---
Date of Service February 04, 2022 Assessment & Plan (1) Encounter for pre-operative examination: Chart Review Chart Review: Acceptable Risk for Surgery and Patient NOT seen in Pre Admission Testing Consults Requested none History Surgery Operation Date: 02/04/22 10:00 Proposed Procedures p Exploratory Laparotomy, Possible Bowel Resection, Possible Ostomy - Kolby Shah DO Height/Weight Height: 6 ft 6 in Weight: 84 kg Allergies Allergy/AdvReac Type Severity Reaction Status Date / Time No Known Allergies Verified 08/25/09 19:41 Medications Home Medications Medication Instructions Recorded Confirmed Last Taken omega 6-wys-nsm-fish oil 1,200 mg 1 cap PO DAILY 02/02/22 02/02/22 Unknown (144 mg-216 mg) capsule (Fish Oil) vitamin E 268 mg (400 unit) capsule 268 mg PO DAILY 02/02/22 02/02/22 Unknown warfarin 10 mg tablet 5 - 10 mg PO DAILY 02/02/22 02/02/22 Unknown Active Medications Generic Name Dose Route Start Last Admin Trade Name Freq PRN Reason Stop Dose Admin Promethazine HCl 12.5 mg/ 50.5 mls @ 204 mls/hr 02/02/22 17:39 02/03/22 08:14 Sodium Chloride IV 03/04/22 17:38 Infused Q6H PRN Infusion Nausea And Vomiting Piperacillin Sod/Tazobactam 115 mls @ 28.75 mls/hr 02/02/22 20:00 02/04/22 07:27 Sod 3.375 gm/ Dextrose IV 02/12/22 19:59 Infused Q8H STEPHANIE Infusion Protocol Potassium Chloride/Dextrose/Sod Cl 20 meq in 1,000 mls @ 130 mls/hr 02/03/22 09:00 02/04/22 07:24 D5w And 1/2nss + 20meq Kcl IV 03/05/22 08:59 130 mls/hr .[id number] STEPHANIE Administration Protocol Morphine Sulfate 2 mg 02/02/22 17:39 02/04/22 04:22 Morphine Sulfate 2 Mg/Ml Carp IV 02/16/22 17:38 2 mg Q2H PRN Administration Pain (1,2,3,4,5) & Pre PT Morphine Sulfate 4 mg 02/02/22 17:39 02/03/22 07:17 Morphine Sulfate 4 Mg/Ml 1 Ml Carp\Vial IV 02/16/22 17:38 4 mg Q2H PRN Administration Pain (6,7,8,9,10) Ondansetron HCl 4 mg 02/02/22 17:39 02/03/22 03:23 Ondansetron Inj 2 Mg/Ml 2 Ml Vial IV 03/04/22 17:38 4 mg Q4H PRN Administration Nausea And Vomiting NPO Date Last Intake of Fluids: 02/03/22 Time Last Intake of Fluids: 23:59 Date Last Intake of Solids: 02/03/22 Time Last Intake of Solids: 23:59 Past Medical History Medical History (Updated 02/04/22 @ 09:16 by Chris Stewart MD) Small bowel perforation history of dvt on coumadin Past Family History hernia repair Social History Smoking Status: Never smoker Hx Alcohol Use: Yes Alcohol type: beer alcohol intake frequency: a few times a week Hx Substance Use: No Physical Exam Vital Signs Last Vital Signs Temp 36.8 C 02/04/22 09:19 Pulse 65 02/04/22 09:19 Resp 18 02/04/22 09:19 BP 125/55 L 02/04/22 09:19 Pulse Ox 100 02/04/22 09:19 O2 Del Method 02/04/22 09:19 Testing Laboratory Results 02/04/22 07:03 02/04/22 07:03 PT 13.5 Seconds (9.0-12.0) H 02/04/22 07:03 INR 1.3 (0.9-1.1) H 02/04/22 07:03 Urine Color Dark Yellow 02/02/22 12:30 Urine Appearance Clear (Clear) 02/02/22 12:30 Urine pH 6.0 (4.5-7.5) 02/02/22 12:30 Ur Specific [place] 1.029 (1.000-1.030) 02/02/22 12:30 Urine Protein 2+ (Negative) H 02/02/22 12:30 Urine Glucose (UA) Negative (Negative) 02/02/22 12:30 Urine Ketones Trace (Negative) H 02/02/22 12:30 Urine Nitrite Negative (Negative) 02/02/22 12:30 Ur Leukocyte Esterase Negative (Negative) 02/02/22 12:30 Urine WBC (Auto) 1-5 /hpf (0-5) 02/02/22 12:30 Urine RBC (Auto) 0-4 /hpf (0-4) 02/02/22 12:30 U Hyaline Cast (Auto) 5-10 /lpf (0-5) H 02/02/22 12:30 U Epithel Cells (Auto) >30 /lpf (0-5) H 02/02/22 12:30 Urine Bacteria (Auto) Negative (Negative) 02/02/22 12:30 Blood Type A Positive 02/03/22 20:06 Antibody Screen NEGATIVE 02/03/22 20:06
[2022-02-04] MEDS ORDERED: ATROPINE SULFATE 0.1 MG/ML 10ML SYR IV PRN (09:20)
[2022-02-04] MEDS ORDERED: PROMETHAZINE HCL 6.25 MG in SODIUM CHLORIDE 0.9% 50 ML IV PRN (09:20)
[2022-02-04] MEDS ORDERED: ONDANSETRON INJ 2 MG/ML 2 ML VIAL IV PRN (09:20)
[2022-02-04] MEDS ORDERED: ePHEDrine sulfate 50 MG/ML AMP IV PRN (09:20)
[2022-02-04] MEDS ORDERED: HYDROmorphone INJ 1 MG/ML SYRINGE IV PRN (09:20)
[2022-02-04] MEDS ORDERED: ALBUMIN HUMAN 5% 12.5 GM/250 ML VIAL IV ONE (09:27)
[2022-02-04] MEDS ORDERED: HYDROmorphone INJ 2 MG/ML SYR/VIAL ONE ×2 (10:56→12:19)
[2022-02-04] MEDS ORDERED: SUGAMMADEX SODIUM 200 MG/2 ML VIAL IV ONE (11:55)
--- NOTE | 2022-02-04 12:37 | Post Operative Brief Note ---
PG Immediate Post Op with CF Date of Surgery February 04, 2022 Pre & Post Diagnosis Operation Date: 02/04/22 10:00 Pre-Op Diagnosis: Small Bowel Perforation Post-Op Diagnosis: Small Bowel Perforation, Inflammed Appendix I identified the patient and participated in the time-out.: Yes Procedure Operation Date: 02/04/22 10:00 Actual Procedures p Exploratory Laparotomy, Small Bowel Resection, Appendectomy(Not Applicable) - Kolby Shah DO Surgeon Kolby Shah DO It Telecom Technician Fausto Yi PA-C Estimated Blood Loss 50 Findings See Below Portion of inflamed ileum with hernán necrosis and perforation into the mesentery Mildly dilated inflamed appendix Specimens Specimen Description: Culture 1: Intra abdominal abscess A: Small Bowel B: Appendix Drains [place]spinosa Catheter Anesthesia Type General Complications none Disposition Disposition: Recovery Room
[2022-02-04] MEDS: fentaNYL citrate 100 MCG/2 ML VIAL IV PRN ×4 (12:45→13:00)
--- NOTE | 2022-02-04 12:47 | Anesthesiology Progress Note ---
Date of Service February 04, 2022 Anesthesia Post Procedure Vital Signs Vital Signs: Temp Pulse Pulse Resp BP BP Pulse Ox 02/04/22 12:40 67 14 148/66 H 100 02/04/22 12:34 36.8 C 71 12 147/71 H 97 02/04/22 09:19 36.8 C 65 18 125/55 L 100 02/04/22 07:36 37.1 C 70 16 118/69 95 02/03/22 19:42 02/03/22 19:42 02/03/22 21:25 37.1 C 67 16 106/58 L 97 02/03/22 14:59 36.9 C 59 L 18 102/54 L 99 Pulse Ox O2 Del Method O2 Del Method O2 Flow Rate 02/04/22 12:40 Oxymask 5 02/04/22 12:34 Oxymask 5 02/04/22 09:19 Room Air 02/04/22 07:36 Room Air 02/03/22 19:42 Room Air 02/03/22 19:42 97 Room Air 02/03/22 21:25 02/03/22 14:59 Room Air Pain Intensity Abdomen: Pain Intensity: 5 Transfer of Care Handoff Completed per policy Notes Mental Status: alert / awake / arousable and participated in evaluation Patient Amnestic to Procedure: Yes Nausea / Vomiting: adequately controlled Pain: adequately controlled and improving with treatment Airway Patency, RR, SpO2: stable & adequate BP & HR: stable & adequate Hydration State: stable & adequate Anesthetic Complications: no major complications apparent and Pt Satisfied with anesthetic care
--- NOTE | 2022-02-04 12:50 | Operative Report ---
PG Post Operative Report Pre & Post Diagnosis Operation Date: 02/04/22 10:00 Pre-Op Diagnosis: Small Bowel Perforation Post-Op Diagnosis: Small Bowel Perforation, Inflammed Appendix I identified the patient and participated in the time-out.: Yes Procedure Operation Date: 02/04/22 10:00 Actual Procedures p Exploratory Laparotomy, Small Bowel Resection, Appendectomy(Not Applicable) - Kolby Shah DO Surgeon Kolby Shah DO Boat Outboard Engine Mechanic Fausto Yi PA-C Estimated Blood Loss 50 Findings See Below Portion of inflamed ileum with hernán necrosis and perforation into the mesentery Mildly dilated inflamed appendix Specimens Small bowel to pathology Appendix to pathology Drains [place] in the midline incision subcutaneous Anesthesia Type General Complications none Disposition Disposition: Recovery Room Indications 71-year-old male with evidence of a small bowel perforation, contained with large phlegmon refractory to nonoperative treatment Description of Procedure The patient was brought to the OR and placed in the supine position with both arms abducted. At this time he underwent general endotracheal anesthesia without any problems. He was given appropriate pre-operative antibiotics. His abdomen was prepped and draped in the usual sterile fashion. Timeout was called. The procedure was verified as Exploratory laparotomy, possible bowel resection, possible ostomy.. Surgical, anesthesia and nursing teams agreed and the procedure was begun. A standard midline incision was made using a #10 blade scalpel. This was carried down to the fascia using electrocautery. The midline fascia was then incised with electrocautery. The peritoneum was then entered bluntly. The incision was then opened up through its entirety. Immediately upon entering the abdomen a large phlegmonous area in the left lower quadrant was palpated. This was then bluntly freed using finger fraction and there was a portion of the small bowel with a frankly necrotic portion with perforation of the mesentery. The abscess that had formed was drained and sent for culture. The small bowel was then run from the ligament of Treitz distally to the ileocecal valve. The area of perforation was within the ileum but far from the IC valve itself. The appendix also was secondarily inflamed and it was decided to perform an appendectomy as well. A window was made in the base of the mesoappendix and a purple load VINICIUS stapler was fired across the base of the appendix. The mesoappendix was then tied off and a clamp clamp tie tie technique. The appendix was removed and passed out as specimen. We then inspected and palpated his entire colon from cecum to the peritoneal reflection. The entire colon appeared healthy without any pathology. At this point we found healthy small bowel proximally and distally from the area of perforation and transected these areas with an 80 mm purple load VINICIUS stapler. We then scored the mesentery and transected the mesentery using a clamp clamp tie tie technique with 3-0 silk suture. The small bowel was passed off as a specimen. We then irrigated the abdomen with multiple liters of warm saline until clear. Both ends of the small bowel appeared healthy without any signs of ischemia. We then placed blue towels around the abdomen to prepare for enteroenterostomy. Enterotomy was made using the cut function on the Bovie electrocautery on the antimesenteric side of both portions of small bowel. Hemostat clamp was placed intraluminally to confirm position. Then using an 80 mm VINICIUS stapler on the antimesenteric side of both portions of small bowel the common channel was formed. We then closed the resulting enterotomy with another 80 mm purple load VINICIUS fire. The staple line was then oversewn in Lembert fashion using 3-0 silk suture. A crotch stitch was also placed using a 3-0 silk suture. The anastomosis was free of any tension, any signs of ischemia and was widely patent. At this point the abdomen was then irrigated until clear. Hemostasis was achieved using electrocautery. Hemostasis was complete. The fascia was then closed in a running fashion using 2 #1 looped PDS suture starting superiorly and inferiorly and meeting in the middle. Skin was closed with bela. Sterile dressing was applied. All needle and sponge counts were correct x 2. At this point the patient was awakened from anesthesia, and transported to PACU in stable condition. The physician's retail loan originator assistant was present and scrubbed for the entirety of the case. He was critical in positioning the patient, prepping and draping, retraction and exposure, closure of the incision and placement of the dressings. I attest to the content of the Intraoperative Record and any orders documented therein. Any exceptions are noted below.
[2022-02-04] MEDS: ACETAMINOPHEN 1,000 MG/100 ML VIAL IV SCH ×2 (14:07→21:39)
[2022-02-04] MEDS: HYDROmorphone INJ 0.5 MG/0.5 ML SYR IV PRN ×3 (14:08→18:13)
--- NOTE | 2022-02-04 16:00 | Electrocardiogram Report ---
Test Reason : Blood Pressure : / mmHG Vent. Rate : 059 BPM Atrial Rate : 059 BPM P-R Int : 184 ms QRS Dur : 082 ms QT Int : 412 ms P-R-T Axes : 078 078 067 degrees QTc Int : 407 ms Sinus bradycardia Otherwise normal ECG When compared with ECG of 25-AUG-2009 16:18, [place] interval has decreased Confirmed by Sean Crawley ([id number]) on 02/04/2022 3:59:54 PM Referred By: REFERRED SELF Confirmed By:Sean Crawley
[2022-02-04] MEDS: PROMETHAZINE HCL 12.5 MG in SODIUM CHLORIDE 0.9% 50 ML IV PRN (21:21)
[2022-02-05] MEDS: ONDANSETRON INJ 2 MG/ML 2 ML VIAL IV PRN ×4 (00:53→20:29)
[2022-02-05] MEDS: HYDROmorphone INJ 0.5 MG/0.5 ML SYR IV PRN ×7 (00:53→20:29)
[2022-02-05] MEDS ORDERED: Nursing to Pharmacy Communication SCH (02:45)
[2022-02-05] MEDS: PROMETHAZINE HCL 12.5 MG in SODIUM CHLORIDE 0.9% 50 ML IV PRN (02:49)
[2022-02-05] MEDS: PIPERACILLIN/TAZOBACTAM 3.375 GM in DEXTROSE 5% 100 ML IV SCH ×3 (04:19→20:29)
[2022-02-05] MEDS: D5W AND 1/2NSS + 20MEQ KCL 20 MEQ/1,000 ML BAG IV SCH ×2 (04:22→08:51)
[2022-02-05] MEDS: ACETAMINOPHEN 1,000 MG/100 ML VIAL IV SCH ×3 (05:56→21:22)
[2022-02-05 07:23] LABS: Hematocrit (blood only) 37.5 % (40.1-51.0); Hemoglobin 12.8 g/dl (14.0-18.0); Mean Corpuscular Hgb Conc 34.1 g/dL (32.0-36.0); Mean Platelet Volume 10.3 fL (9.4-12.4); Platelet Count 177 K/uL (130-400); RDW Coefficient of Variation 14.2 % (11.5-14.5); RDW Standard Deviation 45.9 fL (36.4-46.3); Red Blood Count 4.26 M/uL (4.63-6.08); White Blood Count 7.99 K/ul (4.8-10.8)
[2022-02-05 07:46] LABS: BUN Creatinine Ratio 8.3 (10-20); Calcium 8.1 mg/dl (8.5-10.1); Creatinine Clr Calc Pharmacy 98.6 ml/min; Est GFR (African American) 103.5 ml/min; Est GFR (Non-African American) 89.3 ml/min; Potassium 4.4 mmol/L (3.5-5.1)
[2022-02-05 07:50] LABS: Basophils # (auto) 0.03 K/uL (0-0.2); Basophils % (auto) 0.4 %; Immature Granulocytes # (auto) 0.03 K/uL (0.00-0.02); Immature Granulocytes % (auto) 0.4 %; Lymphocytes # (auto) 0.91 K/uL (1.2-3.4); Lymphocytes % (auto) 11.4 %; Monocytes % (auto) 18.8 %; Neutrophils # (auto) 5.52 K/uL (1.4-6.5); Toxic Granulation 1+
--- NOTE | 2022-02-05 08:29 | Surgery Progress Note ---
Date of Service February 05, 2022 Assessment & Plan (1) Small bowel perforation: Plan: POD#1 exploratory laparotomy with small bowel resection, appendectomy WBC 7.9, Hbg 12.8, Cr 0.8. VSS Pt utilizing IV pain/anti-emetics as needed, will continue Making good urine, will d/c dinero later today Okay to start sips/chips Will start ppx lovenox today OOB as tolerates + pulmonary toilet [facility] surgery covering the weekend Admission and Anticipated Discharge Date Admission Date: February 02, 2022 Supervising Physician Co-Signing Physician Notes I personally saw and evaluated the patient with Nora Herrmann PA-C and agree with the assessment and plan. 71-year-old male postoperative day 1 exploratory laparotomy, small bowel resection, appendectomy for small bowel perforation Overall he is doing well DC Dinero today We will switch his IV fluids to normal saline due to his hyponatremia We will start Lovenox 40 mg daily for DVT prophylaxis, continue to hold his Coumadin Encourage ambulation and incentive spirometry Continue with IV Tylenol and Dilaudid for pain control Will start sips of clears today and monitor for return of bowel function Subjective Patient said he was able to get some sleep last night, but only because he stayed on top of the pain medication. Reported nausea as well requiring anti- emetics to get by, but no bouts of emesis. States that when he receives the medications he does feel better. Wants to get into the chair this AM. Physical Exam Physical Exam: awake/alert, no distress Respiratory: normal respiratory effort Gastrointestinal (Abdomen): Inspection/Auscultation: + abdominal surgical incision (surgical dressings c/d/i ) Percussion/Palpation: + abdomen tender (appropriately tender davy-incisionally) and abdomen soft Results & Data ([facility]) Vital Signs (Past 12 Hours) Vital Signs Temp Pulse Resp BP Pulse Ox O2 Del Method 02/05/22 07:24 36.4 C L 71 18 160/76 H 97 Room Air 02/05/22 01:19 36.7 C 65 18 143/78 H 94 Room Air 02/04/22 21:10 37.1 C 63 18 156/65 H 95 Room Air PG Care Time/CCT Total # of Minutes Spent Total Time Spent with Patient: Total time spent is greater than 50% in coordination of care (as documented) at patient's floor/unit and/or counseling patient: Coding Level of Care Code None Diagnoses Small bowel perforation K63.1
[2022-02-05] MEDS: D5NSS + 20MEQ KCL 20 MEQ/1,000 ML BAG IV SCH ×2 (09:28→17:30)
[2022-02-05] MEDS: ENOXAPARIN INJ 40 MG/0.4 ML SYR SQ SCH (09:30)
[2022-02-06] MEDS: D5NSS + 20MEQ KCL 20 MEQ/1,000 ML BAG IV SCH ×4 (00:23→23:59)
[2022-02-06] MEDS: PROMETHAZINE HCL 12.5 MG in SODIUM CHLORIDE 0.9% 50 ML IV PRN (02:45)
[2022-02-06] MEDS: HYDROmorphone INJ 0.5 MG/0.5 ML SYR IV PRN (02:45)
[2022-02-06] MEDS: PIPERACILLIN/TAZOBACTAM 3.375 GM in DEXTROSE 5% 100 ML IV SCH ×3 (04:52→20:04)
[2022-02-06] MEDS: ACETAMINOPHEN 1,000 MG/100 ML VIAL IV SCH ×3 (04:53→21:20)
[2022-02-06 07:20] LABS: Hematocrit (blood only) 34.3 % (40.1-51.0); Hemoglobin 11.7 g/dl (14.0-18.0); Mean Corpuscular Hemoglobin 29.7 pg (25.0-34.0); Mean Corpuscular Hgb Conc 34.1 g/dL (32.0-36.0); Mean Corpuscular Volume 87.1 fL (80.0-100.0); Mean Platelet Volume 9.5 fL (9.4-12.4); Platelet Count 193 K/uL (130-400); RDW Standard Deviation 44.8 fL (36.4-46.3); Red Blood Count 3.94 M/uL (4.63-6.08); White Blood Count 8.59 K/ul (4.8-10.8)
[2022-02-06 07:51] LABS: Basophils # (auto) 0.02 K/uL (0-0.2); Basophils % (auto) 0.2 %; Eosinophils # (auto) 0.06 K/uL (0-0.50); Eosinophils % (auto) 0.7 %; Immature Granulocytes # (auto) 0.06 K/uL (0.00-0.02); Immature Granulocytes % (auto) 0.7 %; Lymphocytes # (auto) 1.04 K/uL (1.2-3.4); Lymphocytes % (auto) 12.1 %; Monocytes # (auto) 1.25 K/uL (0.24-0.82); Monocytes % (auto) 14.6 %; Neutrophils # (auto) 6.16 K/uL (1.4-6.5); Neutrophils % (auto) 71.7 %; Polychromasia 1+
[2022-02-06 08:10] LABS: BUN Creatinine Ratio 8.8 (10-20); Creatinine Clr Calc Pharmacy 103.5 ml/min; Est GFR (African American) 105.6 ml/min; Est GFR (Non-African American) 91.1 ml/min; Potassium 4.1 mmol/L (3.5-5.1)
[2022-02-06] MEDS: ENOXAPARIN INJ 40 MG/0.4 ML SYR SQ SCH (08:43)
--- NOTE | 2022-02-06 12:04 | Surgery Progress Note ---
Date of Service February 06, 2022 Assessment & Plan (1) Small bowel perforation: Plan 71-year-old male postoperative day 1 exploratory laparotomy, small bowel resection, appendectomy for small bowel perforation, POD 2 Overall he is doing well We will switch his IV fluids to normal saline due to his hyponatremia We start Lovenox 40 mg daily for DVT prophylaxis, continue to hold his Coumadin Encourage ambulation and incentive spirometry Continue with IV Tylenol and Dilaudid for pain control Will start sips of clears today and monitor for return of bowel function repeat labs in morning, will F/U, Admission and Anticipated Discharge Date Admission Date: February 02, 2022 Supervising Physician Co-Signing Physician Notes I personally saw and evaluated the patient with Nora Herrmann PA-C and agree with the assessment and plan. 71-year-old male postoperative day 1 exploratory laparotomy, small bowel resection, appendectomy for small bowel perforation Overall he is doing well DC [place] today We will switch his IV fluids to normal saline due to his hyponatremia We will start Lovenox 40 mg daily for DVT prophylaxis, continue to hold his Coumadin Encourage ambulation and incentive spirometry Continue with IV Tylenol and Dilaudid for pain control Will start sips of clears today and monitor for return of bowel function Subjective Patient said he was able to get some sleep last night, but only because he stayed on top of the pain medication. Reported nausea as well requiring anti- emetics to get by, but no bouts of emesis. States that when he receives the medications he does feel better. Wants to get into the chair this AM. 02/06/2022 11:59 AM, Dr. Moore F/U S/P Exploratory Laparotomy, Small Bowel Resection, POD 2. pt is stable, no significant abdominal pain, some nausea, no vomiting, not pass gas or BM yet, no fever, Physical Exam Constitutional: WD/WN, vitals as above Eyes: PERRL, conjunctivae normal, anicteric sclerae Neck: trachea midline, no thyromegaly Respiratory: normal respiratory effort, lungs clear to auscultation Cardiovascular: RRR, no murmur, no edema Gastrointestinal (Abdomen): soft, mild tenderness at incision site, no rebound pain, no distend, BS +, incision intact, no redness, Musculoskeletal: no cyanosis or clubbing, extremities motor strength 5/5 Neurologic: patellar DTR's 2+ bilat, sensation intact Psychiatric: A+Ox3, euthymic affect Results & Data ([facility]) Vital Signs (Past 12 Hours) Vital Signs Temp Pulse Resp BP Pulse Ox O2 Del Method 02/06/22 09:00 36.7 C 72 20 129/72 97 Room Air Laboratory Results Abnormal lab results 02/06/22 02/06/22 Range/Units 07:05 07:05 RBC 3.94 L (4.63-6.08) M/uL Hgb 11.7 L (14.0-18.0) g/dl Hct 34.3 L (40.1-51.0) % Lymph # (Auto) 1.04 L (1.2-3.4) K/uL [place] # (Auto) 1.25 H (0.24-0.82) K/uL Immature Gran # (Auto) 0.06 H (0.00-0.02) K/uL BUN/Creatinine Ratio 8.8 L (10-20) Glucose 120 H (70-99(Fasting)) mg/dl Calcium 8.0 L (8.5-10.1) mg/dl
[2022-02-06] MEDS: ONDANSETRON INJ 2 MG/ML 2 ML VIAL IV PRN (12:16)
[2022-02-07] MEDS: PROMETHAZINE HCL 12.5 MG in SODIUM CHLORIDE 0.9% 50 ML IV PRN (00:20)
[2022-02-07] MEDS: PIPERACILLIN/TAZOBACTAM 3.375 GM in DEXTROSE 5% 100 ML IV SCH ×3 (04:16→20:14)
[2022-02-07] MEDS: ACETAMINOPHEN 1,000 MG/100 ML VIAL IV SCH (06:08)
[2022-02-07 07:27] LABS: Hematocrit (blood only) 34.6 % (40.1-51.0); Hemoglobin 11.7 g/dl (14.0-18.0); Mean Corpuscular Hemoglobin 29.5 pg (25.0-34.0); Mean Corpuscular Hgb Conc 33.8 g/dL (32.0-36.0); Mean Corpuscular Volume 87.2 fL (80.0-100.0); Mean Platelet Volume 9.4 fL (9.4-12.4); Platelet Count 227 K/uL (130-400); RDW Standard Deviation 45.2 fL (36.4-46.3); Red Blood Count 3.97 M/uL (4.63-6.08); White Blood Count 7.74 K/ul (4.8-10.8)
[2022-02-07 07:48] LABS: Basophils # (auto) 0.03 K/uL (0-0.2); Basophils % (auto) 0.4 %; Eosinophils # (auto) 0.17 K/uL (0-0.50); Eosinophils % (auto) 2.2 %; Immature Granulocytes # (auto) 0.08 K/uL (0.00-0.02); Lymphocytes # (auto) 1.08 K/uL (1.2-3.4); Monocytes # (auto) 0.97 K/uL (0.24-0.82); Monocytes % (auto) 12.5 %; Neutrophils # (auto) 5.41 K/uL (1.4-6.5); Neutrophils % (auto) 69.9 %; Polychromasia 1+; Toxic Granulation 1+
[2022-02-07] MEDS: ENOXAPARIN INJ 40 MG/0.4 ML SYR SQ SCH (07:52)
[2022-02-07] MEDS: D5NSS + 20MEQ KCL 20 MEQ/1,000 ML BAG IV SCH ×3 (07:52→23:30)
[2022-02-07 08:01] LABS: Albumin Level 2.7 gm/dl (3.4-5.0); Bilirubin,Total 0.4 mg/dl (0.2-1.0); Potassium 3.9 mmol/L (3.5-5.1)
[2022-02-07 08:07] LABS: Albumin Globulin Ratio 0.9 (0.9-2); BUN Creatinine Ratio 8.8 (10-20); Creatinine Clr Calc Pharmacy 103.5 ml/min; Est GFR (African American) 105.6 ml/min; Est GFR (Non-African American) 91.1 ml/min; Globulin 2.9 gm/dl (2.5-4.0); Total Protein 5.6 gm/dl (6.0-8.3)
--- NOTE | 2022-02-07 10:12 | Surgery Progress Note ---
Date of Service February 07, 2022 Assessment & Plan (1) Small bowel perforation: Plan 71-year-old male postoperative day 2 exploratory laparotomy, small bowel resection, appendectomy for small bowel perforation, POD 2 Overall he is doing well We will switch his IV fluids to normal saline due to his hyponatremia We start Lovenox 40 mg daily for DVT prophylaxis, continue to hold his Coumadin Encourage ambulation and incentive spirometry Continue with IV Tylenol and Dilaudid for pain control Will start sips of clears today and monitor for return of bowel function repeat labs in morning, will F/U, 02/07/2022 10:19AM F/U exploratory laparotomy, small bowel resection, appendectomy for small bowel perforation, POD 3 doing fine, passed BM, clear diet today, OOB, repeat labs in morning , will F/U, Admission and Anticipated Discharge Date Admission Date: February 02, 2022 Supervising Physician Co-Signing Physician Notes I personally saw and evaluated the patient with Nora Herrmann PA-C and agree with the assessment and plan. 71-year-old male postoperative day 1 exploratory laparotomy, small bowel resection, appendectomy for small bowel perforation Overall he is doing well DC [place] today We will switch his IV fluids to normal saline due to his hyponatremia We will start Lovenox 40 mg daily for DVT prophylaxis, continue to hold his Coumadin Encourage ambulation and incentive spirometry Continue with IV Tylenol and Dilaudid for pain control Will start sips of clears today and monitor for return of bowel function Subjective Patient said he was able to get some sleep last night, but only because he stayed on top of the pain medication. Reported nausea as well requiring anti- emetics to get by, but no bouts of emesis. States that when he receives the medications he does feel better. Wants to get into the chair this AM. 02/06/2022 11:59 AM, Dr. Moore F/U S/P Exploratory Laparotomy, Small Bowel Resection, POD 2. pt is stable, no significant abdominal pain, some nausea, no vomiting, not pass gas or BM yet, no fever, 02/07/2022 10:10 AM, Dr. Moore F/U S/P Exploratory Laparotomy, Small Bowel Resection, POD 3. pt is stable, no significant abdominal pain, passed BM today, no nausea, no vomiting, no fever, Physical Exam Constitutional: WD/WN, vitals as above Eyes: PERRL, conjunctivae normal, anicteric sclerae Neck: trachea midline, no thyromegaly Respiratory: normal respiratory effort, lungs clear to auscultation Cardiovascular: RRR, no murmur, no edema Gastrointestinal (Abdomen): soft, NT, mild incision tenderness, incision intact, no redness, one rachel tube in the incision , Musculoskeletal: no cyanosis or clubbing, extremities motor strength 5/5 Neurologic: patellar DTR's 2+ bilat, sensation intact Psychiatric: A+Ox3, euthymic affect Results & Data ([facility]) Vital Signs (Past 12 Hours) Vital Signs Temp Pulse Pulse Resp BP Pulse Ox O2 Del Method 02/07/22 08:00 37.1 C 81 20 128/75 95 Room Air 02/06/22 22:45 37.1 C 66 16 146/70 H 97 Room Air Laboratory Results Abnormal lab results 02/07/22 02/07/22 Range/Units 07:04 07:04 RBC 3.97 L (4.63-6.08) M/uL Hgb 11.7 L (14.0-18.0) g/dl Hct 34.6 L (40.1-51.0) % Lymph # (Auto) 1.08 L (1.2-3.4) K/uL [place] # (Auto) 0.97 H (0.24-0.82) K/uL Immature Gran # (Auto) 0.08 H (0.00-0.02) K/uL BUN/Creatinine Ratio 8.8 L (10-20) Glucose 115 H (70-99(Fasting)) mg/dl Calcium 8.0 L (8.5-10.1) mg/dl Total Protein 5.6 L (6.0-8.3) gm/dl Albumin 2.7 L (3.4-5.0) gm/dl
[2022-02-08] MEDS: PIPERACILLIN/TAZOBACTAM 3.375 GM in DEXTROSE 5% 100 ML IV SCH ×2 (03:39→13:23)
[2022-02-08 06:47] LABS: Basophils # (auto) 0.03 K/uL (0-0.2); Basophils % (auto) 0.4 %; Eosinophils # (auto) 0.14 K/uL (0-0.50); Eosinophils % (auto) 1.8 %; Hematocrit (blood only) 33.9 % (40.1-51.0); Hemoglobin 11.8 g/dl (14.0-18.0); Immature Granulocytes # (auto) 0.08 K/uL (0.00-0.02); Lymphocytes # (auto) 0.99 K/uL (1.2-3.4); Lymphocytes % (auto) 12.8 %; Mean Corpuscular Hemoglobin 29.7 pg (25.0-34.0); Mean Corpuscular Hgb Conc 34.8 g/dL (32.0-36.0); Mean Corpuscular Volume 85.4 fL (80.0-100.0); Mean Platelet Volume 9.2 fL (9.4-12.4); Monocytes # (auto) 0.88 K/uL (0.24-0.82); Monocytes % (auto) 11.3 %; Neutrophils # (auto) 5.64 K/uL (1.4-6.5); Neutrophils % (auto) 72.7 %; Platelet Count 252 K/uL (130-400); RDW Standard Deviation 43.8 fL (36.4-46.3); Red Blood Count 3.97 M/uL (4.63-6.08); White Blood Count 7.76 K/ul (4.8-10.8)
[2022-02-08] MEDS: ENOXAPARIN INJ 40 MG/0.4 ML SYR SQ SCH (07:37)
[2022-02-08 07:48] LABS: Albumin Level 2.9 gm/dl (3.4-5.0); BUN Creatinine Ratio 7.4 (10-20); Bilirubin,Total 0.5 mg/dl (0.2-1.0); Calcium 8.1 mg/dl (8.5-10.1); Creatinine Clr Calc Pharmacy 102.3 ml/min; Est GFR (African American) 105.1 ml/min; Est GFR (Non-African American) 90.7 ml/min; Potassium 3.8 mmol/L (3.5-5.1); Total Protein 5.9 gm/dl (6.0-8.3)
--- NOTE | 2022-02-08 08:52 | Surgery Progress Note ---
Date of Service February 08, 2022 Assessment & Plan (1) Small bowel perforation: Plan: POD#4 exploratory laparotomy with small bowel resection, appendectomy advance diet, stop IVF labs stable recheck later, consider removing drain and discharge if tolerating diet Admission and Anticipated Discharge Date Admission Date: February 02, 2022 Supervising Physician Co-Signing Physician Notes I personally saw and evaluated the patient with Fausto Yi PA-C and agree with the assessment and plan. 71-year-old male postoperative day 4 exploratory laparotomy, small bowel resection, appendectomy for small bowel perforation Advance to low fiber diet DC IV fluids Continue 40 mg subcutaneous Lovenox daily, will continue this upon discharge Start Coumadin If he is able to tolerate his low fiber diet today, will discharge him later today Will remove drain from midline abdominal incision prior to discharge Subjective minimal pain, loose BMs, tolerating liquids Physical Exam Gastrointestinal (Abdomen): Inspection/Auscultation: abdomen not distended Percussion/Palpation: abdomen soft Results & Data ([facility]) Vital Signs (Past 12 Hours) Vital Signs Temp Pulse Resp BP Pulse Ox O2 Del Method 02/08/22 07:14 36.6 C 81 16 126/73 97 Room Air 02/07/22 21:05 37 C 66 14 148/57 H 96 Room Air PG Care Time/CCT Total # of Minutes Spent Total Time Spent with Patient: Total time spent is greater than 50% in coordination of care (as documented) at patient's floor/unit and/or counseling patient: Coding Level of Care Code None Diagnoses Small bowel perforation K63.1
[2022-02-08] MEDS: D5NSS + 20MEQ KCL 20 MEQ/1,000 ML BAG IV SCH (09:19)
--- NOTE | 2022-02-09 09:03 | Discharge Summary ---
Date of Service February 09, 2022 Admission HPI Per Admitting Provider 71 y/o male with abdominal pain that began four days ago. He seemed to first notice this on Tuesday after a work out. Over the weekend he had slowly increasing pain, nausea, some chills and bloating. Has been having loose BMs for the past few days. Has been eating small amounts such as an egg this morning. No history of pain, IBD or surgery. On coumadin for h/o DVT and has been taking this daily. Principal Diagnosis Small bowel perforation Discharge Exam Constitutional WD/WN, vitals as above Cardiovascular RRR, no murmur, no edema Gastrointestinal (Abdomen) Inspection/Auscultation: + abdominal surgical incision (no erythema); abdomen not distended Percussion/Palpation: abdomen soft Discharge Data Allergies Allergy/AdvReac Type Severity Reaction Status Date / Time No Known Allergies Verified 08/25/09 19:41 Consultations 02/02/22 14:46 Consult General Surgery Stat Procedures Performed Operation Date: 02/04/22 10:00 Actual Procedures p Exploratory Laparotomy, Small Bowel Resection, (Not Applicable) - Kolby Shah DO s Appendectomy(Not Applicable) - Kolby Shah DO Ordered Studies 02/02/22 12:19 CT Abd and Pelvis [CT abd pelvis IV con only] Stat Hospital Course (1) Small bowel perforation: 71 y/o male presented to the ER with abdominal pain increasing over 4 days. White count was 4,[address] showed thickened loops of small bowel with contained perforation. He did not have any acute abdominal findings and was admitted and kept NPO and on Zosyn. After 36 hours he made limited progress and was taken to the operating room for exploration. He had a contained perforation of the ileum and approximately 45 cm of small bowel was resected. He was returned to the surgical floor. He did have some nausea over the first two days, but was then able to tolerate clear liquids. His coumadin had been held and Lovenox started postoperatively. On POD 4 he was able to advance diet and was tolerating oral analgesics. SubQ [place] drain was removed. He was stable for discharge home. Total Time Total Time Spent Total Time Spent (In Minutes): 15 Discharge Plan Discharge Items Patient Disposition: Home - Self-Care Reason For Visit: ABDOMINAL PAIN Discharge Diagnosis: small bowel resection for small bowel perforation appendectomy Activity: Per Instructions section Lifting: No more than 10 pounds Bathing Comment: may shower; no soaking in tubs/pools Exercise/Sports: Wait until after follow-up appointment Driving/Machine Use: Resume 3 days after discharge Non-emergency contact: Surgeon Call non-emergency contact if: you have any medication questions, your symptoms worsen, your pain is not controlled, your pain is concerning for you, you have a fever, your temperature is above 101.5, your wound has increased redness, your wound has increased drainage and your wound pain has increased Follow-up/Referrals: Kolby Shah DO [Physician] - 02/15/22 9:30 am (Please call to schedule follow up in clinic within 1 week) Vaibhav Greenfield MD [Primary Care Provider] - Diet: Low Fiber Addtl Attending Provider Instructions: You can take Tylenol as needed for pain Change bandage daily until drainage stops, remove before showering and place a new bandage after shower You should have INR checked later this week Pending Studies at Discharge: Yes Studies:: surgical pathology Stand-Alone Forms: My [facility], Smoking Cessation Medications and DC Order Prescriptions: New enoxaparin [Lovenox] 40 mg/0.4 mL syringe 40 mg subcut DAILY Qty: 5 0RF Continued warfarin 10 mg tablet 5 - 10 mg PO DAILY Rx Instructions: as directed by coumadin clinic vitamin E 268 mg (400 unit) Capsule 268 mg PO DAILY omega [id number] oil [Fish Oil] 1,200 (144-216) mg Capsule 1 cap PO DAILY Discharge Orders: Discharge Order (Routine); Ordered 02/08/22 Ordered By: Fausto Alatorre/Other Patient Handouts: Low-Fiber Diet, Anatomy of the Digestive System Admission Data Admit Date/Time: 02/02/22 15:19 Attending Provider: Kolby Shah Admit Provider: Kolby Shah Primary Care Provider: Vaibhav Greenfield Other Providers: Kolby Shah Other Interventions: Discharge Summary Assessment (RN) Last Done: 02/08/22 11:47 Coding Level of Care Code D/C DAY MANAGEMENT <30 MINS Diagnoses Small bowel perforation K63.1
== END 2022-02-08 14:45 | disposition home or self-care (01) | DRG 329 ==
LOC: ED 11:21 → EDINP 15:19 → 3W 21:44